=== PATIENT | male | born 1945 | race Two or more races ===

== ENCOUNTER 2021-02-09 17:47 | Inpatient (IN) | payer OTHER ==
[~2021-02-09] VITALS: Ht 182.9 cm; Wt 106.6 kg
[~2021-02-09 17:47] MED LIST: ACETTAB89 PO; METH-532 PO; NAP500T PO
[2021-02-09] MEDS ORDERED: ESTRADIOL 1 MG TAB ONE (17:54)
[2021-02-09] MEDS ORDERED: ETOMIDATE (2MG/ML) 20ML VIAL IV ONE ×2 (17:54→18:00)
[2021-02-09] MEDS ORDERED: SUCCINYLCHOLINE CHLORIDE 20 MG/ML 10ML VIAL IV ONE ×2 (17:54→18:00)
[2021-02-09] MEDS ORDERED: MIDAZOLAM DRIP 50 mg/50mL 50 ML IV ONE (17:55)
[2021-02-09] MEDS ORDERED: dilTIAZem 25 MG/5 ML VIAL IV ONE ×3 (17:56→18:15)
[2021-02-09] MEDS: MIDAZOLAM DRIP 50 mg/50mL 50 ML IV SCH ×2 (18:00→21:27)
[2021-02-09] MEDS ORDERED: SODIUM BICARBONATE 8.4% INJ 50ML SYRINGE ONE (18:02)
[2021-02-09] MEDS ORDERED: PROPOFOL 100 ML IV ONE (18:10)
[2021-02-09] MEDS ORDERED: cefTRIAXone 1GM/50ML D5W 50 ML IV ONE (18:15)
[2021-02-09] MEDS: PROPOFOL 100 ML IV SCH ×2 (18:15→22:18)
[2021-02-09] MEDS ORDERED: dilTIAZem 125mg/125ml BAG KIT 125 ML IV ONE (18:15)
[2021-02-09] MEDS ORDERED: FUROSEMIDE 40 MG/4 ML VIAL IV ONE (18:15)
[2021-02-09] MEDS ORDERED: SODIUM BICARBONATE 8.4 % INJ 50ML VIAL IV ONE (18:15)
[2021-02-09] MEDS: fentaNYL Drip 2500mCg/250mlNS 250 ML IV SCH ×2 (18:15→19:55)
[2021-02-09] MEDS ORDERED: NOREPINEPHRINE 8 MG/250ML KIT 250 ML IV ONE (18:20)
[2021-02-09] MEDS: PHENYLEPHRINE IV 250 ML IV SCH (18:30)
[2021-02-09 18:51] LABS: Albumin 2.7 g/dL (3.4-5.0); Calcium 7.7 mg/dL (8.5-10.1); Magnesium 2.2 mg/dL (1.6-2.6); Potassium 3.6 mmol/L (3.5-5.1)
[2021-02-09 18:55] LABS: INR 1.44 (0.9-1.15); Partial Thromboplastin Time 31.3 sec (23.6-33.0)
[2021-02-09 18:56] LABS: Bilirubin, Total 1.2 mg/dL (0.2-1.0); Total Protein 7.5 g/dL (6.4-8.2)
[2021-02-09 19:01] LABS: Urine Bacteria FEW /hpf (None Seen); Urine Blood 3+ /uL (Negative); Urine Specific Gravity 1.016 (1.001-1.035); Urine WBC 4 /hpf (0 - 3)
[2021-02-09 19:24] LABS: Lactic Acid w/Reflex 3.7 mmol/L (0.4-2.0)
[2021-02-09] MEDS ORDERED: fentaNYL Drip 2500mCg/250mlNS 250 ML IV SCH (19:45)
[2021-02-09] MEDS: NOREPINEPHRINE 8 MG/250ML KIT 250 ML IV SCH (19:48)
[2021-02-09 20:08] VITALS: BP 134/43
[2021-02-09] MEDS ORDERED: DIGOXIN (250MCG/ML) 2 ML AMPULE IV ONE (20:15)
[2021-02-09] MEDS ORDERED: AMIODARONE HCL 200 MG TAB PO ONE (20:15)
[2021-02-09 20:19] VITALS: BP 102/51
[2021-02-09 20:34] LABS: Basophils # (auto) 0.1 10 ^3/uL (0-0.2); Basophils % (auto) 0.3 % (0.0-2.0); Eosinophils # (auto) 0 10 ^3/uL (0-0.8); Lymphocytes # (auto) 2.4 10 ^3/uL (0.4-5.4); Lymphocytes % (auto) 15.2 % (10.0-50.0); Monocytes # (auto) 0.3 10 ^3/uL (0-1.3); Monocytes % (auto) 1.9 % (0.0-12.0); Neutrophils # (auto) 13.1 10 ^3/uL (1.6-8.6); Neutrophils % (auto) 82.6 % (37.0-80.0); Nucleated Red Blood Cells % 0.1 %; White Blood Cell 15.9 10^3/uL (4.4-10.8)
[2021-02-09] MEDS ORDERED: ACETAMINOPHEN 650 MG RECT SUPP PR ONE ×2 (20:36→20:45)
[2021-02-09 21:08] VITALS: BP 102/51
[2021-02-09 21:19] LABS: Hematocrit 42.6 % (41.0-53.0); Hemoglobin 18.2 g/dL (13.5-17.5); Mean Corpuscular Hemoglobin 47.9 pg (28.0-32.0); Mean Corpuscular Volume 112.4 fL (80.0-100.0); Red Blood Cells 3.79 10^6/uL (4.5-5.90)
[2021-02-09 21:20] LABS: Mean Corpuscular Hgb Conc. 42.6 g/dL (32.0-36.0)
[2021-02-09 22:10] VITALS: BP 94/49
[2021-02-09] MEDS ORDERED: ONDANSETRON HCL 4 MG/2 ML VIAL IV PRN (22:15)
[2021-02-09] MEDS ORDERED: MORPHINE SULFATE INJECTION 2 MG/ML SYRG IV PRN (22:15)
[2021-02-09] MEDS ORDERED: DEXTROSE (50%) 50ML SYRG IV PRN (22:15)
[2021-02-09] MEDS ORDERED: NITROGLYCERIN 0.4 MG SL TAB SL PRN (22:15)
[2021-02-09] MEDS ORDERED: SOD CHL 0.45% 1,000 ML IV SCH (22:30)
[2021-02-09] MEDS ORDERED: ENOXAPARIN SOD 120 MG/0.8 ML SYRINGE SC ONE (23:00)
[2021-02-10] VITALS (10 sets, daily range): BP systolic 66–125; BP diastolic 43–65
[2021-02-10] MEDS: MIDAZOLAM DRIP 50 mg/50mL 50 ML IV SCH ×3 (00:57→20:20)
[2021-02-10] MEDS: dilTIAZem 125mg/125ml BAG KIT 100 ML IV SCH ×3 (02:07→20:20)
[2021-02-10] MEDS: NOREPINEPHRINE 8 MG/250ML KIT 250 ML IV SCH ×3 (02:23→21:05)
[2021-02-10] MEDS: PHENYLEPHRINE IV 250 ML IV SCH ×4 (02:50→17:26)
[2021-02-10] MEDS: ACETAMINOPHEN 650 MG RECT SUPP PR PRN (03:18)
[2021-02-10] MEDS: PROPOFOL 100 ML IV SCH ×2 (04:02→18:00)
[2021-02-10 04:49] LABS: INR 1.37 (0.9-1.15); Partial Thromboplastin Time 36.5 sec (23.6-33.0)
[2021-02-10 04:58] LABS: Potassium 3.8 mmol/L (3.5-5.1)
[2021-02-10 05:08] LABS: Albumin 2.2 g/dL (3.4-5.0); BUN/Creatinine Ratio 14.7; Bilirubin, Total 1.3 mg/dL (0.2-1.0); Calcium 7.4 mg/dL (8.5-10.1); Total Protein 6.9 g/dL (6.4-8.2)
[2021-02-10] MEDS: ACCU-CHEK COMFORT CURVE STRIP VI SCH ×4 (06:34→22:00)
[2021-02-10] MEDS: InsuLIN REG 1unit/0.01ml Soln (100units/ml) SC SCH ×4 (06:40→22:00)
[2021-02-10 08:24] LABS: Basophils # (auto) 0.1 10 ^3/uL (0-0.2); Eosinophils # (auto) 0 10 ^3/uL (0-0.8); Eosinophils % (auto) 0.1 % (0.0-7.0); Hematocrit 40.1 % (41.0-53.0); Hemoglobin 16.5 g/dL (13.5-17.5); Lymphocytes # (auto) 1.9 10 ^3/uL (0.4-5.4); Lymphocytes % (auto) 14.5 % (10.0-50.0); Mean Corpuscular Hemoglobin 46.9 pg (28.0-32.0); Mean Corpuscular Volume 114.4 fL (80.0-100.0); Monocytes # (auto) 0.3 10 ^3/uL (0-1.3); Monocytes % (auto) 2.5 % (0.0-12.0); Neutrophils # (auto) 10.8 10 ^3/uL (1.6-8.6); Neutrophils % (auto) 81.9 % (37.0-80.0); Nucleated Red Blood Cells % 0.3 %; Red Blood Cells 3.51 10^6/uL (4.5-5.90); Red Cell Distribution Width 15.8 % (11.8-14.3); White Blood Cell 13.1 10^3/uL (4.4-10.8)
[2021-02-10] MEDS: cefTRIAXone 1GM/50ML D5W 50 ML IV SCH (09:11)
[2021-02-10] MEDS ORDERED: HEPARIN SODIUM (PORCINE) 5000 UNITS/ML 1ML VIAL SC SCH (10:00)
[2021-02-10] MEDS ORDERED: FUROSEMIDE 20 MG/2 ML VIAL IV SCH (10:00)
[2021-02-10] MEDS: AZITHROMYCIN 500MG/ 250ML 250 ML IV SCH (11:07)
[2021-02-10] MEDS: FAMOTIDINE (10MG/ML) 2ML VL IV SCH ×2 (11:07→23:14)
[2021-02-10 13:15] LABS: Thyroid Stimulating Hormone 0.6 uIU/mL (0.358-3.74)
[2021-02-10] MEDS: fentaNYL Drip 2500mCg/250mlNS 250 ML IV SCH (18:23)
[2021-02-10] MEDS ORDERED: ENOXAPARIN SOD 120 MG/0.8 ML SYRINGE SC SCH (22:00)
[2021-02-11] VITALS (9 sets, daily range): BP systolic 76–146; BP diastolic 42–73
[2021-02-11] MEDS: MIDAZOLAM DRIP 50 mg/50mL 50 ML IV SCH ×5 (00:55→22:50)
[2021-02-11] MEDS: PHENYLEPHRINE IV 250 ML IV SCH ×3 (01:40→14:25)
[2021-02-11] MEDS: NOREPINEPHRINE 8 MG/250ML KIT 250 ML IV SCH ×5 (01:48→21:38)
[2021-02-11] MEDS: PROPOFOL 100 ML IV SCH ×3 (03:43→20:45)
[2021-02-11] MEDS: fentaNYL Drip 2500mCg/250mlNS 250 ML IV SCH ×2 (06:30→18:55)
[2021-02-11] MEDS ORDERED: IVERMECTIN 3 MG TAB PO ONE (07:00)
[2021-02-11] MEDS: InsuLIN REG 1unit/0.01ml Soln (100units/ml) SC SCH ×4 (07:00→21:51)
[2021-02-11] MEDS: ACCU-CHEK COMFORT CURVE STRIP VI SCH ×4 (07:00→21:51)
[2021-02-11] MEDS: ACETAMINOPHEN 650 MG RECT SUPP PR PRN (08:43)
[2021-02-11] MEDS ORDERED: SOD CHL 0.45% 1,000 ML IV SCH (08:45)
[2021-02-11] MEDS: cefTRIAXone 1GM/50ML D5W 50 ML IV SCH (09:28)
[2021-02-11] MEDS ORDERED: ENOXAPARIN SOD 120 MG/0.8 ML SYRINGE SC SCH (10:00)
[2021-02-11 10:11] LABS: Albumin 1.6 g/dL (3.4-5.0); Calcium 6.9 mg/dL (8.5-10.1); Potassium 4.7 mmol/L (3.5-5.1)
[2021-02-11 10:13] LABS: BUN/Creatinine Ratio 14.8
[2021-02-11 10:16] LABS: Bilirubin, Total 2.6 mg/dL (0.2-1.0)
[2021-02-11 10:20] LABS: Basophils # (auto) 0 10 ^3/uL (0-0.2); Basophils % (auto) 0.3 % (0.0-2.0); Eosinophils # (auto) 0.1 10 ^3/uL (0-0.8); Monocytes # (auto) 0.1 10 ^3/uL (0-1.3); Neutrophils # (auto) 10.1 10 ^3/uL (1.6-8.6); Red Cell Distribution Width 15.4 % (11.8-14.3)
[2021-02-11 10:23] LABS: Eosinophils % (auto) 1.1 % (0.0-7.0); Hematocrit 39.7 % (41.0-53.0); Hemoglobin 14.9 g/dL (13.5-17.5); Lymphocytes # (auto) 1.2 10 ^3/uL (0.4-5.4); Lymphocytes % (auto) 10.6 % (10.0-50.0); Mean Corpuscular Hemoglobin 42.2 pg (28.0-32.0); Mean Corpuscular Volume 111.9 fL (80.0-100.0); Monocytes % (auto) 0.7 % (0.0-12.0); Neutrophils % (auto) 87.3 % (37.0-80.0); Nucleated Red Blood Cells % 0.3 %; Red Blood Cells 3.54 10^6/uL (4.5-5.90); White Blood Cell 11.6 10^3/uL (4.4-10.8)
[2021-02-11 10:24] LABS: Mean Corpuscular Hgb Conc. 37.7 g/dL (32.0-36.0)
[2021-02-11] MEDS: FAMOTIDINE (10MG/ML) 2ML VL IV SCH ×2 (10:32→22:00)
[2021-02-11] MEDS: DexAMETHasone SOD PHOS 10MG/1ML VIAL INJ IV SCH (10:32)
[2021-02-11] MEDS: ASCORBIC ACID 1,000 MG TAB PO SCH (10:32)
[2021-02-11] MEDS: CHOLECALCIFEROL (VITD3) 2,000 UNIT CAP/TAB PO SCH (10:33)
[2021-02-11] MEDS: AZITHROMYCIN 500MG/ 250ML 250 ML IV SCH (11:03)
[2021-02-11] MEDS ORDERED: HEPARIN SODIUM (PORCINE) 5000 UNITS/ML 1ML VIAL IV ONE (13:00)
[2021-02-11] MEDS: SODIUM BICARBONATE 50ML VIAL 150 ML in D5W 5% 1,000 ML IV SCH (16:07)
[2021-02-11 16:10] LABS: Basophils # (auto) 0 10 ^3/uL (0-0.2); Basophils % (auto) 0.1 % (0.0-2.0); Eosinophils # (auto) 0 10 ^3/uL (0-0.8); Eosinophils % (auto) 0.2 % (0.0-7.0); Hematocrit 45.9 % (41.0-53.0); Hemoglobin 16.2 g/dL (13.5-17.5); Lymphocytes # (auto) 0.4 10 ^3/uL (0.4-5.4); Lymphocytes % (auto) 3.2 % (10.0-50.0); Mean Corpuscular Hemoglobin 38.1 pg (28.0-32.0); Mean Corpuscular Hgb Conc. 35.2 g/dL (32.0-36.0); Mean Corpuscular Volume 108.1 fL (80.0-100.0); Monocytes # (auto) 0.2 10 ^3/uL (0-1.3); Monocytes % (auto) 1.2 % (0.0-12.0); Neutrophils # (auto) 11.7 10 ^3/uL (1.6-8.6); Neutrophils % (auto) 95.3 % (37.0-80.0); Nucleated Red Blood Cells % 0.5 %; Red Blood Cells 4.25 10^6/uL (4.5-5.90); Red Cell Distribution Width 15.3 % (11.8-14.3); White Blood Cell 12.3 10^3/uL (4.4-10.8)
[2021-02-11] MEDS: dilTIAZem 125mg/125ml BAG KIT 100 ML IV SCH ×2 (17:45→20:50)
[2021-02-12] VITALS (59 sets, daily range): BP systolic 89–142; BP diastolic 53–83
[2021-02-12] MEDS: MIDAZOLAM DRIP 50 mg/50mL 50 ML IV SCH ×4 (02:27→20:00)
[2021-02-12] MEDS: SODIUM BICARBONATE 50ML VIAL 150 ML in D5W 5% 1,000 ML IV SCH ×2 (02:30→16:14)
[2021-02-12] MEDS: NOREPINEPHRINE 8 MG/250ML KIT 250 ML IV SCH ×2 (04:30→14:25)
[2021-02-12] MEDS: PROPOFOL 100 ML IV SCH ×4 (04:30→18:00)
[2021-02-12 05:17] LABS: INR 1.03 (0.9-1.15); Partial Thromboplastin Time 25.7 sec (23.6-33.0)
[2021-02-12 05:21] LABS: Potassium 3.5 mmol/L (3.5-5.1)
[2021-02-12 05:30] LABS: Albumin 1.5 g/dL (3.4-5.0); BUN/Creatinine Ratio 14.6; Bilirubin, Total 2.5 mg/dL (0.2-1.0); Calcium 6.8 mg/dL (8.5-10.1); Total Protein 6.2 g/dL (6.4-8.2)
[2021-02-12 05:54] LABS: Basophils # (auto) 0 10 ^3/uL (0-0.2); Eosinophils # (auto) 0 10 ^3/uL (0-0.8)
[2021-02-12] MEDS: HEPARIN DRIP/D5W 100UNITS/ML 250 ML IV SCH ×2 (06:00→18:30)
[2021-02-12 06:52] LABS: Basophils % (auto) 0.1 % (0.0-2.0); Eosinophils % (auto) 0.2 % (0.0-7.0); Hematocrit 39.9 % (41.0-53.0); Hemoglobin 14.5 g/dL (13.5-17.5); Lymphocytes % (auto) 9.2 % (10.0-50.0); Mean Corpuscular Hemoglobin 38.7 pg (28.0-32.0); Mean Corpuscular Hgb Conc. 36.3 g/dL (32.0-36.0); Mean Corpuscular Volume 106.8 fL (80.0-100.0); Monocytes # (auto) 0.2 10 ^3/uL (0-1.3); Monocytes % (auto) 1.4 % (0.0-12.0); Neutrophils # (auto) 9.4 10 ^3/uL (1.6-8.6); Neutrophils % (auto) 89.1 % (37.0-80.0); Nucleated Red Blood Cells % 0.4 %; Red Blood Cells 3.73 10^6/uL (4.5-5.90); Red Cell Distribution Width 14.9 % (11.8-14.3); White Blood Cell 10.6 10^3/uL (4.4-10.8)
[2021-02-12] MEDS: InsuLIN REG 1unit/0.01ml Soln (100units/ml) SC SCH ×4 (07:15→23:27)
[2021-02-12] MEDS: ACCU-CHEK COMFORT CURVE STRIP VI SCH ×4 (07:15→23:27)
[2021-02-12] MEDS: CHOLECALCIFEROL (VITD3) 2,000 UNIT CAP/TAB PO SCH (11:00)
[2021-02-12] MEDS: DexAMETHasone SOD PHOS 10MG/1ML VIAL INJ IV SCH (11:00)
[2021-02-12] MEDS: cefTRIAXone 1GM/50ML D5W 50 ML IV SCH (11:00)
[2021-02-12] MEDS: ASCORBIC ACID 1,000 MG TAB PO SCH (11:00)
[2021-02-12] MEDS: FAMOTIDINE (10MG/ML) 2ML VL IV SCH ×2 (11:00→23:22)
[2021-02-12] MEDS ORDERED: FUROSEMIDE 100 MG/10ML VIAL IV ONE (11:45)
[2021-02-12] MEDS: AZITHROMYCIN 500MG/ 250ML 250 ML IV SCH (12:00)
[2021-02-12] MEDS: PHENYLEPHRINE IV 250 ML IV SCH ×2 (13:10→21:30)
[2021-02-12 13:21] LABS: INR 1.05 (0.9-1.15); Partial Thromboplastin Time 69.4 sec (23.6-33.0)
[2021-02-12] MEDS: FUROSEMIDE 100 MG/10ML VIAL IV SCH (18:00)
[2021-02-12] MEDS ORDERED: REMDESIVIR PER PHARMACY 0 ML IV SCH (19:30)
[2021-02-12 20:16] LABS: INR 1.04 (0.9-1.15)
[2021-02-12 20:28] LABS: Partial Thromboplastin Time 72.6 sec (23.6-33.0)
[2021-02-12] MEDS: fentaNYL Drip 2500mCg/250mlNS 250 ML IV SCH (21:15)
[2021-02-12] MEDS ORDERED: REMDESIVIR 200 MG in NS 210ml LOADING DOSE ADULT IV ONE (21:30)
[2021-02-12] MEDS: AMIODARONE HCL 200 MG TAB PO SCH (23:22)
[2021-02-13] VITALS (103 sets, daily range): BP systolic 83–153; BP diastolic 46–72
[2021-02-13] MEDS: FUROSEMIDE 100 MG/10ML VIAL IV SCH ×2 (05:39→17:38)
[2021-02-13] MEDS: InsuLIN REG 1unit/0.01ml Soln (100units/ml) SC SCH ×4 (07:00→23:12)
[2021-02-13 07:11] LABS: INR 1.03 (0.9-1.15)
[2021-02-13 07:19] LABS: Alanine Aminotransferase 42 U/L (16-61); Albumin 1.6 g/dL (3.4-5.0); Alkaline Phosphatase 40 U/L (45-117); Aspartate Aminotransferase 107 U/L (15-37); BUN/Creatinine Ratio 17.7; Bilirubin, Total 0.9 mg/dL (0.2-1.0); Blood Urea Nitrogen 51 mg/dL (7-18); CRP High Sensitivity 7.23 mg/dL (< 0.3); GFR African American 28 mL/min; GFR Non-African American 23 mL/min; Total Protein 6.3 g/dL (6.4-8.2)
[2021-02-13 07:25] LABS: Anion Gap 5 (5-15); Calcium 6.7 mg/dL (8.5-10.1); Carbon Dioxide 33 mmol/L (21-32); Chloride 104 mmol/L (98-107); Glucose 189 mg/dL (74-106); Sodium 142 mmol/L (136-145)
[2021-02-13 07:27] LABS: Partial Thromboplastin Time 76.5 sec (23.6-33.0); Potassium 2.7 mmol/L (3.5-5.1)
[2021-02-13] MEDS: HEPARIN DRIP/D5W 100UNITS/ML 250 ML IV SCH ×2 (07:31→23:12)
[2021-02-13 07:46] LABS: Basophils # (auto) 0 10 ^3/uL (0-0.2); Basophils % (auto) 0.3 % (0.0-2.0); Eosinophils # (auto) 0 10 ^3/uL (0-0.8); Eosinophils % (auto) 0.1 % (0.0-7.0); Hematocrit 33.4 % (41.0-53.0); Lymphocytes # (auto) 0.4 10 ^3/uL (0.4-5.4); Lymphocytes % (auto) 3.7 % (10.0-50.0); Mean Corpuscular Hemoglobin 47.2 pg (28.0-32.0); Mean Corpuscular Volume 112.9 fL (80.0-100.0); Monocytes # (auto) 0.1 10 ^3/uL (0-1.3); Monocytes % (auto) 0.7 % (0.0-12.0); Neutrophils % (auto) 95.2 % (37.0-80.0); Nucleated Red Blood Cells % 0.1 %; Red Blood Cells 2.96 10^6/uL (4.5-5.90); Red Cell Distribution Width 14.5 % (11.8-14.3); White Blood Cell 11.6 10^3/uL (4.4-10.8)
[2021-02-13 07:47] LABS: Mean Corpuscular Hgb Conc. 41.8 g/dL (32.0-36.0)
[2021-02-13] MEDS: POTASSIUM CHL 20MEQ/50ML 50 ML IV SCH ×3 (07:58→12:11)
[2021-02-13] MEDS: PHENYLEPHRINE IV 250 ML IV SCH ×3 (08:14→22:30)
[2021-02-13] MEDS: AMIODARONE HCL 200 MG TAB PO SCH ×2 (08:14→22:00)
[2021-02-13] MEDS: ASCORBIC ACID 1,000 MG TAB PO SCH (08:14)
[2021-02-13] MEDS: CHOLECALCIFEROL (VITD3) 2,000 UNIT CAP/TAB PO SCH (08:14)
[2021-02-13] MEDS: ACCU-CHEK COMFORT CURVE STRIP VI SCH ×4 (08:15→23:13)
[2021-02-13] MEDS: SODIUM BICARBONATE 50ML VIAL 150 ML in D5W 5% 1,000 ML IV SCH (08:15)
[2021-02-13] MEDS: cefTRIAXone 1GM/50ML D5W 50 ML IV SCH (08:53)
[2021-02-13] MEDS: DexAMETHasone SOD PHOS 10MG/1ML VIAL INJ IV SCH (09:27)
[2021-02-13] MEDS: fentaNYL Drip 2500mCg/250mlNS 250 ML IV SCH ×2 (09:32→23:00)
[2021-02-13] MEDS: PROPOFOL 100 ML IV SCH ×3 (09:50→22:00)
[2021-02-13] MEDS: NICOTINE 21MG/24 HR TOPICAL PATCH TD SCH (10:00)
[2021-02-13] MEDS: AZITHROMYCIN 500MG/ 250ML 250 ML IV SCH (10:00)
[2021-02-13] MEDS: PANTOPRAZOLE 40 MG/10 ML VIAL INJ IV SCH (10:00)
[2021-02-13] MEDS: LACTATED RINGER'S 1,000 ML IV SCH (10:30)
[2021-02-13] MEDS ORDERED: POTASSIUM CHL 20MEQ/50ML 50 ML IV SCH ×2 (10:30→13:00)
[2021-02-13] MEDS: NOREPINEPHRINE 8 MG/250ML KIT 250 ML IV SCH (11:00)
[2021-02-13] MEDS ORDERED: POTASSIUM CHL 20MEQ/50ML 50 ML IV ONE (11:00)
[2021-02-13 13:23] LABS: INR 1.05 (0.9-1.15); Partial Thromboplastin Time 62.2 sec (23.6-33.0)
[2021-02-13] MEDS ORDERED: REMDESIVIR 100mg 100 MG in SODIUM CHL 0.9% 230 ML IV SCH (15:00)
[2021-02-13] MEDS: MIDAZOLAM DRIP 50 mg/50mL 50 ML IV SCH ×2 (16:12→21:00)
[2021-02-13 18:59] LABS: INR 1.02 (0.9-1.15); Partial Thromboplastin Time 52.8 sec (23.6-33.0)
[2021-02-13 21:33] LABS: Magnesium 2.1 mg/dL (1.6-2.6); Potassium 3.7 mmol/L (3.5-5.1)
[2021-02-14] VITALS (104 sets, daily range): BP systolic 90–136; BP diastolic 43–67
[2021-02-14] MEDS: LACTATED RINGER'S 1,000 ML IV SCH (01:10)
[2021-02-14 01:59] LABS: Partial Thromboplastin Time 53.5 sec (23.6-33.0)
[2021-02-14 02:01] LABS: INR 1.03 (0.9-1.15)
[2021-02-14] MEDS: PROPOFOL 100 ML IV SCH (02:34)
[2021-02-14] MEDS: MIDAZOLAM DRIP 50 mg/50mL 50 ML IV SCH ×2 (02:35→17:02)
[2021-02-14 05:08] LABS: Potassium 3.5 mmol/L (3.5-5.1)
[2021-02-14 05:26] LABS: Albumin 1.6 g/dL (3.4-5.0); BUN/Creatinine Ratio 22.7; Bilirubin, Total 0.9 mg/dL (0.2-1.0); Calcium 6.7 mg/dL (8.5-10.1); Total Protein 5.9 g/dL (6.4-8.2)
[2021-02-14] MEDS: FUROSEMIDE 100 MG/10ML VIAL IV SCH (05:48)
[2021-02-14] MEDS: PHENYLEPHRINE IV 250 ML IV SCH ×3 (06:50→23:30)
[2021-02-14] MEDS: InsuLIN REG 1unit/0.01ml Soln (100units/ml) SC SCH ×4 (07:00→21:37)
[2021-02-14] MEDS: ACCU-CHEK COMFORT CURVE STRIP VI SCH ×4 (07:00→21:37)
[2021-02-14] MEDS: HEPARIN DRIP/D5W 100UNITS/ML 250 ML IV SCH (08:00)
[2021-02-14] MEDS: NOREPINEPHRINE 8 MG/250ML KIT 250 ML IV SCH (08:13)
[2021-02-14] MEDS: AMIODARONE HCL 200 MG TAB PO SCH ×2 (08:13→21:39)
[2021-02-14] MEDS: cefTRIAXone 1GM/50ML D5W 50 ML IV SCH (08:48)
[2021-02-14] MEDS: DexAMETHasone SOD PHOS 10MG/1ML VIAL INJ IV SCH (09:24)
[2021-02-14] MEDS: PANTOPRAZOLE 40 MG/10 ML VIAL INJ IV SCH (09:24)
[2021-02-14] MEDS: NICOTINE 21MG/24 HR TOPICAL PATCH TD SCH (09:25)
[2021-02-14] MEDS: CHOLECALCIFEROL (VITD3) 2,000 UNIT CAP/TAB PO SCH (09:25)
[2021-02-14] MEDS: AZITHROMYCIN 500MG/ 250ML 250 ML IV SCH (09:25)
[2021-02-14] MEDS: ASCORBIC ACID 1,000 MG TAB PO SCH (09:25)
[2021-02-14] MEDS: fentaNYL Drip 2500mCg/250mlNS 250 ML IV SCH (11:26)
[2021-02-14] MEDS ORDERED: FLUCONAZOLE 200MG/100ML 100 ML IV ONE (15:15)
[2021-02-14 22:47] LABS: Magnesium 2.2 mg/dL (1.6-2.6)
[2021-02-14] MEDS: POTASSIUM CHL 20MEQ/50ML 50 ML IV SCH (23:17)
[2021-02-15] VITALS (96 sets, daily range): BP systolic 97–151; BP diastolic 44–72
[2021-02-15 01:27] LABS: INR 1.05 (0.9-1.15)
[2021-02-15] MEDS: HEPARIN DRIP/D5W 100UNITS/ML 250 ML IV SCH ×3 (01:39→17:24)
[2021-02-15] MEDS: POTASSIUM CHL 20MEQ/50ML 50 ML IV SCH (01:40)
[2021-02-15] MEDS: InsuLIN REG 1unit/0.01ml Soln (100units/ml) SC SCH ×4 (06:01→22:12)
[2021-02-15] MEDS: ACCU-CHEK COMFORT CURVE STRIP VI SCH ×4 (06:01→22:07)
[2021-02-15] MEDS: fentaNYL Drip 2500mCg/250mlNS 250 ML IV SCH ×2 (06:54→09:03)
[2021-02-15] MEDS: MIDAZOLAM DRIP 50 mg/50mL 50 ML IV SCH ×2 (06:55→09:03)
[2021-02-15] MEDS: PHENYLEPHRINE IV 250 ML IV SCH ×2 (07:50→16:10)
[2021-02-15 07:57] LABS: Hematocrit 33.6 % (41.0-53.0); Hemoglobin 12.7 g/dL (13.5-17.5)
[2021-02-15 07:59] LABS: Mean Corpuscular Hemoglobin 40.6 pg (28.0-32.0); Mean Corpuscular Volume 107.4 fL (80.0-100.0); Red Blood Cells 3.13 10^6/uL (4.5-5.90); Red Cell Distribution Width 14.8 % (11.8-14.3); White Blood Cell 7.8 10^3/uL (4.4-10.8)
[2021-02-15 08:04] LABS: Basophils % (manual) 0 (0.0-2.0); Eosinophils % (manual) 0 (0-7); Mean Corpuscular Hgb Conc. 37.8 g/dL (32.0-36.0); Metamyelocytes % 0; Monocytes % (manual) 0 (0-12); Promyelocytes % 0
[2021-02-15 08:05] LABS: Albumin 1.6 g/dL (3.4-5.0); BUN/Creatinine Ratio 26.9; Blast Cells 0; Calcium 6.9 mg/dL (8.5-10.1); Potassium 4.6 mmol/L (3.5-5.1); Reactive Lymphocytes 0
[2021-02-15 08:08] LABS: Total Protein 6.1 g/dL (6.4-8.2)
[2021-02-15 08:29] LABS: Band Neutrophils % (manual) 1; Lymphocytes % (manual) 8 (10.0-50.0); Myelocytes % 1
[2021-02-15] MEDS: cefTRIAXone 1GM/50ML D5W 50 ML IV SCH (09:02)
[2021-02-15] MEDS: FUROSEMIDE 100 MG/10ML VIAL IV SCH (09:41)
[2021-02-15] MEDS: DexAMETHasone SOD PHOS 10MG/1ML VIAL INJ IV SCH (09:41)
[2021-02-15] MEDS: CHOLECALCIFEROL (VITD3) 2,000 UNIT CAP/TAB PO SCH (09:42)
[2021-02-15] MEDS: ASCORBIC ACID 1,000 MG TAB PO SCH (09:42)
[2021-02-15] MEDS: AMIODARONE HCL 200 MG TAB PO SCH ×2 (09:42→22:07)
[2021-02-15] MEDS: PANTOPRAZOLE 40 MG/10 ML VIAL INJ IV SCH (09:42)
[2021-02-15] MEDS: NICOTINE 21MG/24 HR TOPICAL PATCH TD SCH (09:43)
[2021-02-15] MEDS: FLUCONAZOLE 200MG/100ML 100 ML IV SCH (09:43)
[2021-02-15 11:51] LABS: INR 1.06 (0.9-1.15)
[2021-02-15 12:08] LABS: Partial Thromboplastin Time 81.7 sec (23.6-33.0)
[2021-02-15] MEDS: PROPOFOL 100 ML IV SCH (18:15)
[2021-02-15] MEDS: NOREPINEPHRINE 8 MG/250ML KIT 250 ML IV SCH (18:23)
[2021-02-15 18:44] LABS: INR 1.06 (0.9-1.15); Partial Thromboplastin Time 60.9 sec (23.6-33.0)
[2021-02-16] VITALS (98 sets, daily range): BP systolic 100–164; BP diastolic 52–82
[2021-02-16] MEDS: PHENYLEPHRINE IV 250 ML IV SCH ×3 (00:30→17:10)
[2021-02-16 01:39] LABS: INR 1.09 (0.9-1.15)
[2021-02-16 04:57] LABS: Partial Thromboplastin Time 75.9 sec (23.6-33.0)
[2021-02-16] MEDS: ACCU-CHEK COMFORT CURVE STRIP VI SCH ×4 (06:21→22:06)
[2021-02-16] MEDS: InsuLIN REG 1unit/0.01ml Soln (100units/ml) SC SCH ×4 (06:22→22:22)
[2021-02-16] MEDS: HEPARIN DRIP/D5W 100UNITS/ML 250 ML IV SCH (06:37)
[2021-02-16 06:40] LABS: Potassium 4.1 mmol/L (3.5-5.1)
[2021-02-16 06:42] LABS: INR 1.09 (0.9-1.15); Partial Thromboplastin Time 56.7 sec (23.6-33.0)
[2021-02-16 07:21] LABS: Albumin 1.8 g/dL (3.4-5.0); BUN/Creatinine Ratio 35.5; Bilirubin, Total 0.8 mg/dL (0.2-1.0); CRP High Sensitivity 1.19 mg/dL (< 0.3); Calcium 7.6 mg/dL (8.5-10.1); Magnesium 2.7 mg/dL (1.6-2.6); Phosphorus 3.3 mg/dL (2.5-4.90); Total Protein 6.2 g/dL (6.4-8.2)
[2021-02-16 07:49] LABS: Hematocrit 42.5 % (41.0-53.0); Hemoglobin 14.2 g/dL (13.5-17.5); Mean Corpuscular Hemoglobin 32.9 pg (28.0-32.0); Mean Corpuscular Hgb Conc. 33.5 g/dL (32.0-36.0); Mean Corpuscular Volume 98.2 fL (80.0-100.0); Red Blood Cells 4.33 10^6/uL (4.5-5.90); Red Cell Distribution Width 14.5 % (11.8-14.3); White Blood Cell 9.4 10^3/uL (4.4-10.8)
[2021-02-16 07:57] LABS: Basophils % (manual) 0 (0.0-2.0); Blast Cells 0; Metamyelocytes % 0; Myelocytes % 0; Promyelocytes % 0; Reactive Lymphocytes 0
[2021-02-16 09:08] LABS: Band Neutrophils % (manual) 3; Eosinophils % (manual) 1 (0-7); Lymphocytes % (manual) 8 (10.0-50.0); Monocytes % (manual) 1 (0-12)
[2021-02-16] MEDS: cefTRIAXone 1GM/50ML D5W 50 ML IV SCH (09:25)
[2021-02-16] MEDS: DexAMETHasone SOD PHOS 10MG/1ML VIAL INJ IV SCH (10:29)
[2021-02-16] MEDS: FLUCONAZOLE 200MG/100ML 100 ML IV SCH (10:29)
[2021-02-16] MEDS: FUROSEMIDE 100 MG/10ML VIAL IV SCH (10:30)
[2021-02-16] MEDS: ASCORBIC ACID 1,000 MG TAB PO SCH (10:30)
[2021-02-16] MEDS: AMIODARONE HCL 200 MG TAB PO SCH ×2 (10:30→22:06)
[2021-02-16] MEDS: PANTOPRAZOLE 40 MG/10 ML VIAL INJ IV SCH (10:30)
[2021-02-16] MEDS: CHOLECALCIFEROL (VITD3) 2,000 UNIT CAP/TAB PO SCH (10:31)
[2021-02-16] MEDS: NICOTINE 21MG/24 HR TOPICAL PATCH TD SCH (10:31)
[2021-02-16] MEDS ORDERED: REMDESIVIR 100mg 100 MG in SODIUM CHL 0.9% 230 ML IV SCH (15:00)
[2021-02-16] MEDS: REMDESIVIR 100mg 50 MG in SODIUM CHL 0.9% 240 ML IV SCH (16:00)
[2021-02-16] MEDS: PROPOFOL 100 ML IV SCH (18:15)
[2021-02-16] MEDS: MIDAZOLAM DRIP 50 mg/50mL 50 ML IV SCH (18:15)
[2021-02-16] MEDS: fentaNYL Drip 2500mCg/250mlNS 250 ML IV SCH (18:15)
[2021-02-16] MEDS: NOREPINEPHRINE 8 MG/250ML KIT 250 ML IV SCH (19:00)
[2021-02-17] VITALS (82 sets, daily range): BP systolic 84–164; BP diastolic 53–85
[2021-02-17] MEDS: PHENYLEPHRINE IV 250 ML IV SCH ×3 (01:30→18:10)
[2021-02-17] MEDS: HEPARIN DRIP/D5W 100UNITS/ML 250 ML IV SCH ×2 (05:06→18:21)
[2021-02-17 05:50] LABS: INR 1.1 (0.9-1.15); Partial Thromboplastin Time 49.3 sec (23.6-33.0)
[2021-02-17 05:51] LABS: Calcium 7.6 mg/dL (8.5-10.1); Potassium 3.7 mmol/L (3.5-5.1)
[2021-02-17] MEDS: ACCU-CHEK COMFORT CURVE STRIP VI SCH ×2 (06:28→12:30)
[2021-02-17] MEDS: InsuLIN REG 1unit/0.01ml Soln (100units/ml) SC SCH ×2 (06:28→12:30)
[2021-02-17] MEDS: cefTRIAXone 1GM/50ML D5W 50 ML IV SCH (09:00)
[2021-02-17] MEDS: AMIODARONE HCL 200 MG TAB PO SCH ×2 (09:35→22:00)
[2021-02-17] MEDS: DexAMETHasone SOD PHOS 10MG/1ML VIAL INJ IV SCH (09:35)
[2021-02-17] MEDS: CHOLECALCIFEROL (VITD3) 2,000 UNIT CAP/TAB PO SCH (09:35)
[2021-02-17] MEDS: FUROSEMIDE 100 MG/10ML VIAL IV SCH (09:35)
[2021-02-17] MEDS: PANTOPRAZOLE 40 MG/10 ML VIAL INJ IV SCH (09:35)
[2021-02-17] MEDS: FLUCONAZOLE 200MG/100ML 100 ML IV SCH (09:36)
[2021-02-17] MEDS: ASCORBIC ACID 1,000 MG TAB PO SCH (09:36)
[2021-02-17] MEDS: NICOTINE 21MG/24 HR TOPICAL PATCH TD SCH (09:36)
[2021-02-17] MEDS ORDERED: POTASSIUM CHL 20MEQ/50ML 50 ML IV ONE (11:15)
[2021-02-17] MEDS ORDERED: POTASSIUM CHL 20MEQ/100ML 100 ML IV ONE (12:30)
[2021-02-17] MEDS ORDERED: TPN PER PHARMACY 0 ML IV SCH (12:30)
[2021-02-17 13:42] LABS: Potassium 3.3 mmol/L (3.5-5.1)
[2021-02-17 13:52] LABS: Albumin 2.3 g/dL (3.4-5.0); BUN/Creatinine Ratio 35.5; Bilirubin, Total 0.9 mg/dL (0.2-1.0); Magnesium 2.8 mg/dL (1.6-2.6); Phosphorus 4.4 mg/dL (2.5-4.90); Pre Albumin 39.7 mg/dL (20.0-40.0); Total Protein 7.2 g/dL (6.4-8.2)
[2021-02-17] MEDS: REMDESIVIR 100mg 50 MG in SODIUM CHL 0.9% 240 ML IV SCH (15:00)
[2021-02-17] MEDS ORDERED: DEXTROSE (50%) 50ML SYRG IV PRN ×2 (16:45)
[2021-02-17] MEDS ORDERED: ACCU-CHEK COMFORT CURVE STRIP VI SCH (17:00)
[2021-02-17] MEDS ORDERED: InsuLIN REG 1unit/0.01ml Soln (100units/ml) SC SCH (17:00)
[2021-02-17] MEDS: PROPOFOL 100 ML IV SCH (18:15)
[2021-02-17] MEDS: MIDAZOLAM DRIP 50 mg/50mL 50 ML IV SCH (18:15)
[2021-02-17] MEDS: FREE WATER GT SCH ×2 (18:24→22:00)
[2021-02-17] MEDS: fentaNYL Drip 2500mCg/250mlNS 250 ML IV SCH (18:37)
[2021-02-17] MEDS: NOREPINEPHRINE 8 MG/250ML KIT 250 ML IV SCH (19:00)
[2021-02-17 20:00] LABS: INR 1.14 (0.9-1.15); Partial Thromboplastin Time 49.5 sec (23.6-33.0)
[2021-02-17] MEDS ORDERED: AMINO ACID INFUSION IN D10W 1,000 ML IV ONE (20:00)
[2021-02-18] VITALS (100 sets, daily range): BP systolic 86–144; BP diastolic 47–76
[2021-02-18] MEDS ORDERED: DEXTROSE (50%) 50ML SYRG IV SCH
[2021-02-18] MEDS: ACCU-CHEK COMFORT CURVE STRIP VI SCH ×4 (00:26→17:41)
[2021-02-18] MEDS: InsuLIN REG 1unit/0.01ml Soln (100units/ml) SC SCH ×4 (00:38→18:35)
[2021-02-18] MEDS: FREE WATER GT SCH ×6 (02:10→21:57)
[2021-02-18] MEDS: PHENYLEPHRINE IV 250 ML IV SCH ×3 (02:30→19:10)
[2021-02-18 02:48] LABS: INR 1.18 (0.9-1.15)
[2021-02-18 02:51] LABS: Partial Thromboplastin Time 71.4 sec (23.6-33.0)
[2021-02-18 05:22] LABS: Hematocrit 37.2 % (41.0-53.0); Hemoglobin 13.8 g/dL (13.5-17.5); Mean Corpuscular Hemoglobin 39.4 pg (28.0-32.0); Mean Corpuscular Volume 106.1 fL (80.0-100.0); Red Blood Cells 3.51 10^6/uL (4.5-5.90); Red Cell Distribution Width 15.4 % (11.8-14.3); White Blood Cell 11.5 10^3/uL (4.4-10.8)
[2021-02-18 05:32] LABS: Calcium 7.7 mg/dL (8.5-10.1); Magnesium 2.9 mg/dL (1.6-2.6); Potassium 3.8 mmol/L (3.5-5.1)
[2021-02-18 05:37] LABS: BUN/Creatinine Ratio 37.5; Bilirubin, Total 0.7 mg/dL (0.2-1.0); Phosphorus 4.7 mg/dL (2.5-4.90); Total Protein 6.9 g/dL (6.4-8.2)
[2021-02-18 06:23] LABS: Mean Corpuscular Hgb Conc. 37.1 g/dL (32.0-36.0)
[2021-02-18 06:26] LABS: Band Neutrophils % (manual) 0; Basophils % (manual) 0 (0.0-2.0); Blast Cells 0; Eosinophils % (manual) 0 (0-7); Metamyelocytes % 0; Promyelocytes % 0; Reactive Lymphocytes 0
[2021-02-18 07:10] LABS: Lymphocytes % (manual) 7 (10.0-50.0); Monocytes % (manual) 1 (0-12); Myelocytes % 1
[2021-02-18] MEDS: MIDAZOLAM DRIP 50 mg/50mL 50 ML IV SCH (07:57)
[2021-02-18] MEDS: cefTRIAXone 1GM/50ML D5W 50 ML IV SCH (08:26)
[2021-02-18 09:29] LABS: INR 1.18 (0.9-1.15)
[2021-02-18 09:32] LABS: Partial Thromboplastin Time 74.3 sec (23.6-33.0)
[2021-02-18] MEDS: DexAMETHasone SOD PHOS 10MG/1ML VIAL INJ IV SCH (09:43)
[2021-02-18] MEDS: PANTOPRAZOLE 40 MG/10 ML VIAL INJ IV SCH (09:44)
[2021-02-18] MEDS: FLUCONAZOLE 200MG/100ML 100 ML IV SCH (09:52)
[2021-02-18] MEDS ORDERED: ARTIFICIAL TEARS 15ml EACHEYE PRN (10:00)
[2021-02-18] MEDS: AMIODARONE HCL 200 MG TAB PO SCH ×2 (10:00→21:57)
[2021-02-18] MEDS ORDERED: CLINIMIX PER PHARMACY 0 ML IV SCH (10:00)
[2021-02-18] MEDS ORDERED: FUROSEMIDE 40 MG/4 ML VIAL IV SCH (10:00)
[2021-02-18] MEDS: NICOTINE 21MG/24 HR TOPICAL PATCH TD SCH (10:00)
[2021-02-18] MEDS: CHOLECALCIFEROL (VITD3) 2,000 UNIT CAP/TAB PO SCH (10:00)
[2021-02-18] MEDS: ASCORBIC ACID 1,000 MG TAB PO SCH (10:00)
[2021-02-18] MEDS ORDERED: D5W 5% 1,000 ML IV ONE (10:30)
[2021-02-18] MEDS: fentaNYL Drip 2500mCg/250mlNS 250 ML IV SCH (14:00)
[2021-02-18] MEDS: REMDESIVIR 100mg 50 MG in SODIUM CHL 0.9% 240 ML IV SCH (14:56)
[2021-02-18] MEDS: HEPARIN DRIP/D5W 100UNITS/ML 250 ML IV SCH (15:30)
[2021-02-18 16:03] LABS: INR 1.19 (0.9-1.15)
[2021-02-18 16:04] LABS: Partial Thromboplastin Time 89.7 sec (23.6-33.0)
[2021-02-18] MEDS: PROPOFOL 100 ML IV SCH (18:15)
[2021-02-18] MEDS: NOREPINEPHRINE 8 MG/250ML KIT 250 ML IV SCH (19:00)
[2021-02-18] MEDS ORDERED: TPN PER PHARMACY IV NR ×5 (20:00)
[2021-02-18 22:47] LABS: INR 1.56 (0.9-1.15); Partial Thromboplastin Time 49.3 sec (23.6-33.0)
[2021-02-19] VITALS (96 sets, daily range): BP systolic 87–183; BP diastolic 52–84
[2021-02-19] MEDS: ACCU-CHEK COMFORT CURVE STRIP VI SCH ×4 (00:41→18:00)
[2021-02-19] MEDS: InsuLIN REG 1unit/0.01ml Soln (100units/ml) SC SCH ×4 (00:43→18:00)
[2021-02-19] MEDS: FREE WATER GT SCH ×6 (01:28→22:00)
[2021-02-19] MEDS: HEPARIN DRIP/D5W 100UNITS/ML 250 ML IV SCH ×2 (02:24→23:57)
[2021-02-19 03:17] LABS: Basophils # (auto) 0 10 ^3/uL (0-0.2); Eosinophils # (auto) 0.1 10 ^3/uL (0-0.8); Monocytes # (auto) 0.1 10 ^3/uL (0-1.3)
[2021-02-19 03:24] LABS: Basophils % (auto) 0.1 % (0.0-2.0); Eosinophils % (auto) 0.6 % (0.0-7.0); Hematocrit 34.1 % (41.0-53.0); Lymphocytes # (auto) 0.6 10 ^3/uL (0.4-5.4); Lymphocytes % (auto) 5.1 % (10.0-50.0); Mean Corpuscular Hemoglobin 36.8 pg (28.0-32.0); Mean Corpuscular Hgb Conc. 35.1 g/dL (32.0-36.0); Mean Corpuscular Volume 104.8 fL (80.0-100.0); Monocytes % (auto) 0.6 % (0.0-12.0); Neutrophils # (auto) 10.6 10 ^3/uL (1.6-8.6); Neutrophils % (auto) 93.6 % (37.0-80.0); Nucleated Red Blood Cells % 0.2 %; Red Blood Cells 3.26 10^6/uL (4.5-5.90); White Blood Cell 11.4 10^3/uL (4.4-10.8)
[2021-02-19] MEDS: PHENYLEPHRINE IV 250 ML IV SCH ×3 (03:30→19:53)
[2021-02-19 03:34] LABS: INR 1.24 (0.9-1.15); Partial Thromboplastin Time 61.6 sec (23.6-33.0)
[2021-02-19 03:35] LABS: Albumin 1.7 g/dL (3.4-5.0); BUN/Creatinine Ratio 43.9; Calcium 7.3 mg/dL (8.5-10.1); Magnesium 2.3 mg/dL (1.6-2.6); Potassium 3.1 mmol/L (3.5-5.1)
[2021-02-19 03:39] LABS: Bilirubin, Total 0.6 mg/dL (0.2-1.0); Phosphorus 2.9 mg/dL (2.5-4.90); Total Protein 5.9 g/dL (6.4-8.2)
[2021-02-19] MEDS: cefTRIAXone 1GM/50ML D5W 50 ML IV SCH (09:00)
[2021-02-19] MEDS: AMIODARONE HCL 200 MG TAB PO SCH ×2 (09:58→22:00)
[2021-02-19] MEDS: NICOTINE 21MG/24 HR TOPICAL PATCH TD SCH (10:00)
[2021-02-19] MEDS: ASCORBIC ACID 1,000 MG TAB PO SCH (10:00)
[2021-02-19] MEDS: CHOLECALCIFEROL (VITD3) 2,000 UNIT CAP/TAB PO SCH (10:00)
[2021-02-19] MEDS: PANTOPRAZOLE 40 MG/10 ML VIAL INJ IV SCH (10:01)
[2021-02-19] MEDS: DexAMETHasone SOD PHOS 10MG/1ML VIAL INJ IV SCH (10:01)
[2021-02-19] MEDS: FLUCONAZOLE 200MG/100ML 100 ML IV SCH (10:01)
[2021-02-19] MEDS: PROPOFOL 100 ML IV SCH (11:15)
[2021-02-19] MEDS ORDERED: POTASSIUM CHL 20MEQ/100ML 100 ML IV ONE (11:30)
[2021-02-19] MEDS ORDERED: MICAFUNGIN SODIUM 100 MG in SODIUM CHL 0.9% 100 ML IV ONE (13:30)
[2021-02-19 13:44] LABS: INR 1.23 (0.9-1.15); Partial Thromboplastin Time 53.3 sec (23.6-33.0)
[2021-02-19] MEDS: fentaNYL Drip 2500mCg/250mlNS 250 ML IV SCH (14:00)
[2021-02-19] MEDS ORDERED: POTASSIUM PHOSP 22MEQ(15MMOLE) in NS 100 ML IV ONE (14:00)
[2021-02-19] MEDS: REMDESIVIR 100mg 50 MG in SODIUM CHL 0.9% 240 ML IV SCH (15:00)
[2021-02-19] MEDS: MIDAZOLAM DRIP 50 mg/50mL 50 ML IV SCH (18:00)
[2021-02-19] MEDS: NOREPINEPHRINE 8 MG/250ML KIT 250 ML IV SCH (19:00)
[2021-02-19 19:17] LABS: INR 1.21 (0.9-1.15); Partial Thromboplastin Time 65.7 sec (23.6-33.0)
[2021-02-19] MEDS ORDERED: TPN PER PHARMACY IV NR ×9 (20:00)
[2021-02-20] VITALS (79 sets, daily range): BP systolic 86–177; BP diastolic 51–91
[2021-02-20] MEDS: ACCU-CHEK COMFORT CURVE STRIP VI SCH ×4 (00:06→18:28)
[2021-02-20] MEDS: InsuLIN REG 1unit/0.01ml Soln (100units/ml) SC SCH ×4 (00:07→18:28)
[2021-02-20] MEDS: FREE WATER GT SCH ×6 (02:00→21:54)
[2021-02-20] MEDS: PHENYLEPHRINE IV 250 ML IV SCH ×3 (03:28→19:44)
[2021-02-20 04:00] LABS: Basophils # (auto) 0 10 ^3/uL (0-0.2); Eosinophils # (auto) 0.3 10 ^3/uL (0-0.8); Lymphocytes # (auto) 0.5 10 ^3/uL (0.4-5.4); Monocytes # (auto) 0.1 10 ^3/uL (0-1.3)
[2021-02-20 04:02] LABS: Eosinophils % (auto) 3.2 % (0.0-7.0); Hematocrit 31.7 % (41.0-53.0); Hemoglobin 11.3 g/dL (13.5-17.5); Lymphocytes % (auto) 4.5 % (10.0-50.0); Mean Corpuscular Hemoglobin 37.1 pg (28.0-32.0); Mean Corpuscular Hgb Conc. 35.7 g/dL (32.0-36.0); Mean Corpuscular Volume 104.1 fL (80.0-100.0); Monocytes % (auto) 0.5 % (0.0-12.0); Neutrophils # (auto) 9.4 10 ^3/uL (1.6-8.6); Neutrophils % (auto) 91.8 % (37.0-80.0); Red Blood Cells 3.05 10^6/uL (4.5-5.90); Red Cell Distribution Width 14.9 % (11.8-14.3); White Blood Cell 10.2 10^3/uL (4.4-10.8)
[2021-02-20 04:17] LABS: Albumin 1.7 g/dL (3.4-5.0); Calcium 7.1 mg/dL (8.5-10.1); Magnesium 2.3 mg/dL (1.6-2.6)
[2021-02-20 04:18] LABS: Bilirubin, Total 0.7 mg/dL (0.2-1.0); Phosphorus 3.8 mg/dL (2.5-4.90); Total Protein 5.6 g/dL (6.4-8.2)
[2021-02-20 05:23] LABS: Potassium 2.9 mmol/L (3.5-5.1)
[2021-02-20] MEDS ORDERED: POTASSIUM CHL 20 Meq TABLET PO ONE ×2 (06:00→06:17)
[2021-02-20] MEDS ORDERED: POTASSIUM CHL 20MEQ/100ML 100 ML IV SCH (09:00)
[2021-02-20] MEDS: cefTRIAXone 1GM/50ML D5W 50 ML IV SCH (09:07)
[2021-02-20] MEDS ORDERED: MICAFUNGIN SODIUM 100 MG in SODIUM CHL 0.9% 100 ML IV SCH (10:00)
[2021-02-20] MEDS: ASCORBIC ACID 1,000 MG TAB PO SCH (10:14)
[2021-02-20] MEDS: PANTOPRAZOLE 40 MG/10 ML VIAL INJ IV SCH (10:14)
[2021-02-20] MEDS: CHOLECALCIFEROL (VITD3) 2,000 UNIT CAP/TAB PO SCH (10:14)
[2021-02-20] MEDS: DexAMETHasone SOD PHOS 10MG/1ML VIAL INJ IV SCH (10:14)
[2021-02-20] MEDS: NICOTINE 21MG/24 HR TOPICAL PATCH TD SCH (10:15)
[2021-02-20] MEDS: AMIODARONE HCL 200 MG TAB PO SCH ×2 (10:17→21:54)
[2021-02-20] MEDS ORDERED: D5W 5% IV SCH (10:30)
[2021-02-20] MEDS ORDERED: VORICONAZOLE IV SCH (10:30)
[2021-02-20] MEDS: VORICONAZOLE INJ 400 MG in D5W 5% 250 ML IV SCH (12:40)
[2021-02-20] MEDS: HEPARIN DRIP/D5W 100UNITS/ML 250 ML IV SCH (12:41)
[2021-02-20] MEDS ORDERED: POTASSIUM CHLORIDE 40 MEQ, LIDOCAINE 1% (LOCAL ANESTH.) 4 ML in SODIUM CHL 0.9% 250 ML IV ONE (16:30)
[2021-02-20] MEDS: hydrALAZINE HCL 20 MG/ML VL IV PRN (16:39)
[2021-02-20] MEDS: MIDAZOLAM DRIP 50 mg/50mL 50 ML IV SCH (18:15)
[2021-02-20] MEDS: fentaNYL Drip 2500mCg/250mlNS 250 ML IV SCH (18:15)
[2021-02-20] MEDS: PROPOFOL 100 ML IV SCH (18:15)
[2021-02-20] MEDS: NOREPINEPHRINE 8 MG/250ML KIT 250 ML IV SCH (18:29)
[2021-02-20 19:01] LABS: INR 1.19 (0.9-1.15); Partial Thromboplastin Time 63.2 sec (23.6-33.0)
[2021-02-20] MEDS ORDERED: TPN PER PHARMACY IV NR ×10 (20:00)
[2021-02-21] MEDS: VORICONAZOLE INJ 400 MG in D5W 5% 250 ML IV SCH (00:09)
[2021-02-21] MEDS: ACCU-CHEK COMFORT CURVE STRIP VI SCH ×5 (00:10→23:45)
[2021-02-21] MEDS: InsuLIN REG 1unit/0.01ml Soln (100units/ml) SC SCH ×5 (00:12→23:45)
[2021-02-21] MEDS: FREE WATER GT SCH ×2 (01:18→06:00)
[2021-02-21 05:00] VITALS: BP 160/89
[2021-02-21 05:31] LABS: Basophils # (auto) 0 10 ^3/uL (0-0.2); Eosinophils # (auto) 0 10 ^3/uL (0-0.8); Lymphocytes # (auto) 0.5 10 ^3/uL (0.4-5.4); Monocytes # (auto) 0.1 10 ^3/uL (0-1.3)
[2021-02-21 05:35] LABS: Basophils % (auto) 0.2 % (0.0-2.0); Eosinophils % (auto) 0.2 % (0.0-7.0); Lymphocytes % (auto) 5.4 % (10.0-50.0); Mean Corpuscular Hemoglobin 37.8 pg (28.0-32.0); Mean Corpuscular Hgb Conc. 36.2 g/dL (32.0-36.0); Mean Corpuscular Volume 104.5 fL (80.0-100.0); Monocytes % (auto) 1.6 % (0.0-12.0); Neutrophils # (auto) 8.7 10 ^3/uL (1.6-8.6); Neutrophils % (auto) 92.6 % (37.0-80.0); Red Blood Cells 3.16 10^6/uL (4.5-5.90); White Blood Cell 9.4 10^3/uL (4.4-10.8)
[2021-02-21 05:44] LABS: INR 1.1 (0.9-1.15); Partial Thromboplastin Time 55.9 sec (23.6-33.0)
[2021-02-21 05:56] LABS: Albumin 1.8 g/dL (3.4-5.0); Calcium 7.8 mg/dL (8.5-10.1); Magnesium 2.6 mg/dL (1.6-2.6); Potassium 4.1 mmol/L (3.5-5.1)
[2021-02-21 06:01] LABS: BUN/Creatinine Ratio 36.9; Bilirubin, Total 0.4 mg/dL (0.2-1.0); Phosphorus 2.6 mg/dL (2.5-4.90); Total Protein 6.4 g/dL (6.4-8.2)
[2021-02-21] MEDS: hydrALAZINE HCL 20 MG/ML VL IV PRN ×2 (06:35→21:13)
[2021-02-21 08:31] VITALS: BP 149/91
[2021-02-21] MEDS: HEPARIN DRIP/D5W 100UNITS/ML 250 ML IV SCH (08:36)
[2021-02-21] MEDS: PANTOPRAZOLE 40 MG/10 ML VIAL INJ IV SCH (10:02)
[2021-02-21] MEDS: CHOLECALCIFEROL (VITD3) 2,000 UNIT CAP/TAB PO SCH (10:02)
[2021-02-21] MEDS: ASCORBIC ACID 1,000 MG TAB PO SCH (10:02)
[2021-02-21] MEDS: NICOTINE 21MG/24 HR TOPICAL PATCH TD SCH (10:03)
[2021-02-21] MEDS: AMIODARONE HCL 200 MG TAB PO SCH ×2 (10:04→21:33)
[2021-02-21] MEDS: VORICONAZOLE INJ 300 MG in D5W 5% 250 ML IV SCH ×2 (12:58→23:45)
[2021-02-21 13:00] VITALS: BP 160/85
[2021-02-21 17:00] VITALS: BP 142/75
[2021-02-21] MEDS ORDERED: TPN PER PHARMACY IV NR ×12 (20:00)
[2021-02-21] MEDS: APIXABAN 5 MG TAB PO SCH (21:33)
[2021-02-21 22:00] VITALS: BP 158/82
[2021-02-22 05:00] VITALS: BP 158/72
[2021-02-22] MEDS: InsuLIN REG 1unit/0.01ml Soln (100units/ml) SC SCH ×2 (05:17→12:00)
[2021-02-22] MEDS: ACCU-CHEK COMFORT CURVE STRIP VI SCH ×2 (05:18→12:00)
[2021-02-22] MEDS: hydrALAZINE HCL 20 MG/ML VL IV PRN (05:19)
[2021-02-22 05:31] LABS: Eosinophils # (auto) 0.2 10 ^3/uL (0-0.8); Eosinophils % (auto) 2.1 % (0.0-7.0); Hemoglobin 12.4 g/dL (13.5-17.5); Lymphocytes # (auto) 0.8 10 ^3/uL (0.4-5.4); Monocytes # (auto) 0.1 10 ^3/uL (0-1.3)
[2021-02-22 05:48] LABS: Basophils # (auto) 0 10 ^3/uL (0-0.2); Basophils % (auto) 0.4 % (0.0-2.0); Hematocrit 35.3 % (41.0-53.0); Lymphocytes % (auto) 7.9 % (10.0-50.0); Mean Corpuscular Hemoglobin 35.6 pg (28.0-32.0); Mean Corpuscular Hgb Conc. 35.2 g/dL (32.0-36.0); Mean Corpuscular Volume 100.9 fL (80.0-100.0); Monocytes % (auto) 0.6 % (0.0-12.0); Neutrophils # (auto) 9.3 10 ^3/uL (1.6-8.6); Nucleated Red Blood Cells % 0.1 %; Red Cell Distribution Width 14.9 % (11.8-14.3); White Blood Cell 10.5 10^3/uL (4.4-10.8)
[2021-02-22 06:00] LABS: BUN/Creatinine Ratio 28.4
[2021-02-22 09:00] VITALS: BP 141/97
[2021-02-22] MEDS: ASCORBIC ACID 1,000 MG TAB PO SCH (10:00)
[2021-02-22] MEDS: AMIODARONE HCL 200 MG TAB PO SCH (10:00)
[2021-02-22] MEDS: CHOLECALCIFEROL (VITD3) 2,000 UNIT CAP/TAB PO SCH (10:00)
[2021-02-22] MEDS: APIXABAN 5 MG TAB PO SCH (10:00)
[2021-02-22] MEDS: NICOTINE 21MG/24 HR TOPICAL PATCH TD SCH (10:00)
[2021-02-22] MEDS: PANTOPRAZOLE 40 MG/10 ML VIAL INJ IV SCH (10:00)
[2021-02-22] MEDS: VORICONAZOLE INJ 300 MG in D5W 5% 250 ML IV SCH (12:00)
[2021-02-28] MEDS ORDERED: APIXABAN 5 MG TAB PO SCH (22:00)
== END 2021-02-22 14:55 | disposition left against medical advice (07) | DRG 870 ==
LOC: ER 17:47 → EDBD 17:47 → OVERFLOW 22:14 → DOU IN ICU 02-12 09:31 → TELE-EAST 02-20 23:00
PROVIDERS: ADMIT Nurse Practitioner Family; ATTEND Internal Medicine
PROC: 5A1955Z Respiratory Ventilation, Greater than 96 Consecutive Hours (ICD-10-PCS; principal; 2021-02-09)
PROC: 0BH17EZ Insertion of Endotracheal Airway into Trachea, Via Natural or Artificial Opening (ICD-10-PCS; 2021-02-09)
PROC: XW033E5 Introduction of Remdesivir Anti-infective into Peripheral Vein, Percutaneous Approach, New Technology Group 5 (ICD-10-PCS; 2021-02-12)
DX: A41.89 Other specified sepsis (principal); I21.4 Non-ST elevation (NSTEMI) myocardial infarction; I50.43 Acute on chronic combined systolic (congestive) and diastolic (congestive) heart failure; J96.01 Acute respiratory failure with hypoxia; N17.0 Acute kidney failure with tubular necrosis; J12.82 Pneumonia due to coronavirus disease 2019; R65.21 Severe sepsis with septic shock; U07.1 COVID-19; J96.02 Acute respiratory failure with hypercapnia; D68.9 Coagulation defect, unspecified; E87.0 Hyperosmolality and hypernatremia; I47.1 Supraventricular tachycardia; N39.0 Urinary tract infection, site not specified; I82.402 Acute embolism and thrombosis of unspecified deep veins of left lower extremity; I13.0 Hypertensive heart and chronic kidney disease with heart failure and stage 1 through stage 4 chronic kidney disease, or unspecified chronic kidney disease; Z66 Do not resuscitate; E87.6 Hypokalemia; E88.09 Other disorders of plasma-protein metabolism, not elsewhere classified; I48.0 Paroxysmal atrial fibrillation; Z53.29 Procedure and treatment not carried out because of patient's decision for other reasons; N18.9 Chronic kidney disease, unspecified; E11.22 Type 2 diabetes mellitus with diabetic chronic kidney disease
CPT/HCPCS: 31500; 36415; 36556; 36600; 70450; 71045; 74018; 80048; 80053; 81001; 82040; 82306; 82728; 82805; 82962; 83036; 83605; 83615; 83735; 83880; 84100; 84132; 84443; 84478; 84484; 85007; 85025; 85027; 85379; 85610; 85730; 86141; 87040; 87070; 87077; 87081; 87086; 87088; 87186; 87205; 87426; 93005; 93306; 93970; 94002; 94003; 94640; 96365; 96366; 96368; 96375; 96376; 97163; 99291; C9113; G0378; J0330; J0696; J1100; J1450; J1815; J2001; J2248; J2250; J2704; J3465; J3480; J3490; J7060